=== PATIENT | male | born 1960 | race Two or more races ===

== ENCOUNTER 2018-11-25 09:30 | Inpatient (IN) | payer OTHER ==
[~2018-11-25] VITALS: Ht 170.2 cm; Wt 76.7 kg
[2018-11-25] MEDS ORDERED: SECTRAL PO (12:45)
[2018-11-25] MEDS ORDERED: RANITIDINE HCL300 M1 PO (12:46)
[2018-11-25] MEDS ORDERED: TAMS0.4C PO (12:46)
[2018-11-25] MEDS ORDERED: MAXIMUM D310000 UNIT PO (12:46)
[2018-12-04] MEDS ORDERED: CETIRIZINE HCL10 MG PO (08:17)
[2018-12-04] MEDS ORDERED: ACEBUTOLOL HCL200 MG PO (08:17)
[2018-12-04] MEDS ORDERED: GABAPENTIN800 MG PO (08:18)
== END 2018-12-11 15:58 | disposition home or self-care (01) | DRG 330 ==
LOC: EDSTATUS 09:30 → ADM 09:30 → SURH 12-03 09:30 → O/R 12-03 09:53 → SURG 12-03 09:53 → SURH 12-03 13:45 → SURG 12-03 15:13
PROVIDERS: ADMIT Colon & Rectal Surgery
PROC: 0DTN4ZZ Resection of Sigmoid Colon, Percutaneous Endoscopic Approach (ICD-10-PCS; principal; 2018-12-04)
PROC: 07TB4ZZ Resection of Mesenteric Lymphatic, Percutaneous Endoscopic Approach (ICD-10-PCS; 2018-12-04)
PROC: 0DJD8ZZ Inspection of Lower Intestinal Tract, Via Natural or Artificial Opening Endoscopic (ICD-10-PCS; 2018-12-04)
PROC: 4A12X4Z Monitoring of Cardiac Electrical Activity, External Approach (ICD-10-PCS; 2018-12-04)
PROC: 4A033R1 Measurement of Arterial Saturation, Peripheral, Percutaneous Approach (ICD-10-PCS; 2018-12-04)
PROC: 3E0F7GC Introduction of Other Therapeutic Substance into Respiratory Tract, Via Natural or Artificial Opening (ICD-10-PCS; 2018-12-05)
DX: C19 Malignant neoplasm of rectosigmoid junction (principal); N39.0 Urinary tract infection, site not specified; J98.11 Atelectasis; J95.89 Other postprocedural complications and disorders of respiratory system, not elsewhere classified; R50.82 Postprocedural fever; B96.29 Other Escherichia coli [E. coli] as the cause of diseases classified elsewhere; G47.33 Obstructive sleep apnea (adult) (pediatric); I11.9 Hypertensive heart disease without heart failure; D50.0 Iron deficiency anemia secondary to blood loss (chronic); R73.01 Impaired fasting glucose; Z88.0 Allergy status to penicillin; Z88.8 Allergy status to other drugs, medicaments and biological substances; Z85.048 Personal history of other malignant neoplasm of rectum, rectosigmoid junction, and anus; R59.0 Localized enlarged lymph nodes

== ENCOUNTER → 2018-11-29 | Day surgery (SDC) | payer OTHER ==
[~2018-11-29] MED LIST: ACEBUTOLOL HCL200 MG PO; CETIRIZINE HCL10 MG PO; GABAPENTIN800 MG PO; MAXIMUM D310000 UNIT PO; RANITIDINE HCL300 M1 PO; SECTRAL PO; TAMS0.4C PO
== END | disposition home or self-care (01) ==
LOC: ADM 11-22 14:15 → AMB-ENDOS 10:20
DX: K64.1 Second degree hemorrhoids (principal)

== ENCOUNTER 2019-01-21 06:03 | Day surgery (SDC) | payer OTHER ==
[~2019-01-21 06:03] MED LIST changes: +COZAAR50 MG
== END 2019-01-21 13:30 | disposition home or self-care (01) ==
LOC: CIR.AMB 06:03
DX: C20 Malignant neoplasm of rectum (principal)
CPT/HCPCS: 36561; C1751

== ENCOUNTER 2019-12-26 07:37 | Day surgery (SDC) | payer OTHER | END 2019-12-26 13:00 | disposition home or self-care (01) | LOC: AMB-ENDOS 07:37 | PROVIDERS: ATTEND Colon & Rectal Surgery | DX: D12.0 Benign neoplasm of cecum (principal); K64.1 Second degree hemorrhoids; Z20.828 Contact with and (suspected) exposure to other viral communicable diseases ==